=== PATIENT | female | born 1965 | race Caucasian/White ===

== ENCOUNTER 2020-04-02 09:25 | Emergency (ER) | payer OTHER ==
[2020-04-02 09:32] VITALS: BP 145/70; PULSE 72; RESP 18; TEMP 98
[2020-04-02] MEDS ORDERED: hydrOXYzine HCL 25 MG TAB PO STA (09:41)
--- NOTE | 2020-04-02 09:46 | ED ---
Skin/Abscess/FB HPI - General Chief complaint: Skin/Abscess/Foreign Body Stated complaint: hives Time Seen by Provider: 04/02/20 09:32 Source: patient, RN notes reviewed Mode of arrival: ambulatory Limitations: no limitations - History of Present Illness Initial comments: 54-year-old female presents emergency Department chief complaint itchy rash. Patient states that has been on and off for last 1 week. Patient states she also did get a Same time. She states that she's been treating the For some upper respiratory illness. Patient states that she's been taken Benadryl intermittently which helps. She states her small little bite brown noted. No fevers or chills no new medications soaps lotions detergents. - Related Data Previous Rx's Medication Instructions Recorded Triamcinolone 0.1% Cream [Kenalog 1 applicatio TOPICAL BID #30 gram 04/02/20 0.1% Cream] diphenhydrAMINE & Zinc Cream 1 applic TOPICAL TID #1 oz 04/02/20 [Benadryl Cream] hydrOXYzine HCL [Atarax] 25 mg PO TID PRN #15 tab 04/02/20 Allergies Allergy/AdvReac Type Severity Reaction Status Date / Time No Known Allergies Allergy Verified 04/02/20 09:32 Review of Systems ROS Statement: Those systems with pertinent positive or pertinent negative responses have been documented in the HPI. ROS Other: All systems not noted in ROS Statement are negative. Past Medical History Past Medical History: COPD History of Any Multi-Drug Resistant Organisms: None Reported Past Surgical History: Hysterectomy Past Psychological History: Anxiety Smoking Status: Current every day smoker Past Alcohol Use History: None Reported Past Drug Use History: None Reported General Exam Limitations: no limitations General appearance: alert, in no apparent distress Head exam: Present: atraumatic, normocephalic, normal inspection Eye exam: Present: normal appearance, PERRL, EOMI. Absent: scleral icterus, conjunctival injection, periorbital swelling ENT exam: Present: normal exam, normal oropharynx, mucous membranes moist Neck exam: Present: normal inspection, full ROM. Absent: tenderness, meningismus, lymphadenopathy Respiratory exam: Present: normal lung sounds bilaterally. Absent: respiratory distress, wheezes, rales, rhonchi, stridor Cardiovascular Exam: Present: regular rate, normal rhythm, normal heart sounds. Absent: systolic murmur, diastolic murmur, rubs, gallop, clicks Skin exam: Present: warm, dry, intact, normal color, rash (Small raised papules with excoriations noted and mildly on the extremities, torso region) Course Vital Signs 04/02/20 09:28 Temperature 98 F Pulse Rate 72 Respiratory 18 Rate Blood Pressure 145/70 O2 Sat by Pulse 98 Oximetry Medical Decision Making - Medical Decision Making 54-year-old female presented for rash. Patient has some sort of bites we discussed possibility of fleas that she has a new kitten that was rescued. Patient will be given Atarax, topical steroid cream for itching advised to follow-up with PCP and return for any worsening symptoms. Disposition Clinical Impression: Insect bites, Pruritic rash Disposition: HOME SELF-CARE Condition: Stable Instructions (If sedation given, give patient instructions): Acute Rash (ED) Additional Instructions: Please return to the Emergency Department if symptoms worsen or any other concerns. Prescriptions: hydrOXYzine HCL [Atarax] 25 mg PO TID PRN #15 tab PRN Reason: Itching diphenhydrAMINE & Zinc Cream [Benadryl Cream] 1 applic TOPICAL TID #1 oz Triamcinolone 0.1% Cream [Kenalog 0.1% Cream] 1 applicatio TOPICAL BID #30 gram Is patient prescribed a controlled substance at d/c from ED?: No Referrals: None,Stated [Primary Care Provider] - 1-2 days Time of Disposition: 09:46
== END 2020-04-02 09:56 | disposition home or self-care (01) ==
LOC: EC 09:25
DX: L29.9 Pruritus, unspecified (principal); F17.200 Nicotine dependence, unspecified, uncomplicated; W57.XXXA Bitten or stung by nonvenomous insect and other nonvenomous arthropods, initial encounter
CPT/HCPCS: 99282

== ENCOUNTER → 2020-07-10 | Outpatient (CLI) | payer OTHER ==
--- NOTE | 2020-07-11 00:38 | MR ---
EXAMINATION TYPE: MR hip RT wo con DATE OF EXAM: 07/10/2020 COMPARISON: None HISTORY: Right hip pain, clicking, and locking. Multiplanar multiecho imaging of the pelvis and right hip was performed without contrast. Pelvic ring appears intact. The proximal femurs and hip joints appear intact. There is no evidence of hip dysplasia. Hip joint spaces are fairly symmetric. There is no sign of avascular necrosis. There is no evidence of right hip joint effusion. I see no evidence of a pelvic mass. Bladder distends smoothly. The sacroiliac joints have normal sign al pattern. IMPRESSION: Negative MR scan of the right hip.
== END | disposition home or self-care (01) ==
LOC: RADMRIMAIN 13:06
PROVIDERS: ATTEND Physician Assistant
DX: M25.551 Pain in right hip (principal); M25.552 Pain in left hip; M70.61 Trochanteric bursitis, right hip; M54.5 Low back pain

== ENCOUNTER 2020-12-26 23:23 | Emergency (ER) | payer OTHER ==
[2020-12-26 23:28] VITALS: RESP 18
[2020-12-27 00:08] LABS: Basophils % (A) 0 %; Eosinophils # (A) 0.1 k/uL (0-0.7); Eosinophils % (A) 1 %; HCT 40.6 % (34.0-46.0); HGB 14.6 gm/dL (11.4-16.0); Lymphocytes # (A) 1.8 k/uL (1.0-4.8); Lymphocytes % (A) 28 %; MCH 32.7 pg (25.0-35.0); MCHC 36.1 g/dL (31.0-37.0); MCV 90.7 fL (80.0-100.0); Monocytes # (A) 0.5 k/uL (0-1.0); Monocytes % (A) 8 %; Neutrophils # (A) 3.9 k/uL (1.3-7.7); Neutrophils % (A) 61 %; Platelet Count 234 k/uL (150-450); RBC 4.48 m/uL (3.80-5.40); RDW 12.2 % (11.5-15.5); WBC 6.5 k/uL (3.8-10.6)
[2020-12-27 00:20] LABS: ALT 13 U/L (4-34); AST 19 U/L (14-36); African American GFR (CKD) >90 (>60 ml/min/1.73 sqM); Alkaline Phosphatase 50 U/L (38-126); Amylase 72 U/L (30-110); Anion Gap 7 mmol/L; Blood Urea Nitrogen 13 mg/dL (7-17); Calcium 9.7 mg/dL (8.4-10.2); Carbon Dioxide 22 mmol/L (22-30); Chloride 109 mmol/L (98-107); Glucose 104 mg/dL (74-99); Lipase 378 U/L (23-300); Magnesium 1.8 mg/dL (1.6-2.3); Non-African American GFR(CKD) >90 (>60 ml/min/1.73 sqM); Potassium 3.7 mmol/L (3.5-5.1); Sodium 138 mmol/L (137-145); Total Bilirubin 0.4 mg/dL (0.2-1.3); Total Protein 6.2 g/dL (6.3-8.2)
[2020-12-27 00:40] LABS: D-Dimer 0.24 mg/L FEU (<0.60); INR 0.9 (<1.2); Partial Thromboplastin Time 23.4 sec (22.0-30.0); Prothrombin Time 10.1 sec (9.0-12.0)
--- NOTE | 2020-12-27 00:47 | XR ---
EXAMINATION TYPE: XR chest 2V DATE OF EXAM: 12/27/2020 COMPARISON: 03/05/2012 HISTORY: Chest pain TECHNIQUE: 2 views FINDINGS: Heart and mediastinum are normal. Lungs are clear. Diaphragm is normal. Bony thorax is inta ct. There are chest leads. IMPRESSION: Normal chest. No change.
--- NOTE | 2020-12-27 01:16 | ED ---
Chest Pain HPI - General Chief Complaint: Chest Pain Stated Complaint: Chest Pain Time Seen by Provider: 12/26/20 23:42 Source: patient Mode of arrival: ambulatory Limitations: no limitations - History of Present Illness Initial Comments: 's patient is a 55-year-old woman who presents with complaint of chest pain that is been going on for 2 days. She states that it seems to be worse with stress. No relieving factors. MD Complaint: chest pain Onset/Timin -: days(s) Onset: during rest Pain Location: left chest Pain Radiation: none Severity: moderate Quality: aching, other (Pressure) Consistency: constant Improves With: nothing Worsens With: other (Stress) Other Symptoms: cough Treatments Prior to Arrival: none - Related Data Previous Rx's Medication Instructions Recorded Triamcinolone 0.1% Cream [Kenalog 1 applicatio TOPICAL BID #30 gram 04/02/20 0.1% Cream] diphenhydrAMINE & Zinc Cream 1 applic TOPICAL TID #1 oz 04/02/20 [Benadryl Cream] hydrOXYzine HCL [Atarax] 25 mg PO TID PRN #15 tab 04/02/20 Allergies Allergy/AdvReac Type Severity Reaction Status Date / Time No Known Allergies Allergy Verified 12/26/20 23:25 Review of Systems ROS Statement: Those systems with pertinent positive or pertinent negative responses have been documented in the HPI. ROS Other: All systems not noted in ROS Statement are negative. Constitutional: Denies: fever, chills Respiratory: Reports: cough (Smoker's cough, chronic). Denies: dyspnea, wheezes, hemoptysis Cardiovascular: Reports: chest pain. Denies: palpitations, orthopnea, edema, syncope Gastrointestinal: Denies: abdominal pain, nausea, vomiting, diarrhea Genitourinary: Denies: dysuria, hematuria Musculoskeletal: Denies: back pain Skin: Denies: rash Neurological: Denies: headache, weakness, numbness EKG Findings - EKG Comments: EKG Findings:: Low voltage QRS complex - EKG Results: EKG: interpreted by LISSETTE, sinus rhythm (Rate 67 bpm), normal axis, normal ST/T Past Medical History Past Medical History: COPD History of Any Multi-Drug Resistant Organisms: None Reported Past Surgical History: Hysterectomy Past Psychological History: Anxiety Smoking Status: Current every day smoker Past Alcohol Use History: None Reported Past Drug Use History: None Reported General Exam Limitations: no limitations Course Vital Signs 12/26/20 12/27/20 12/27/20 23:25 00:40 01:30 Temperature 97.9 F 98.0 F Pulse Rate 72 75 78 Respiratory 18 18 18 Rate Blood Pressure 145/77 149/89 161/87 O2 Sat by Pulse 98 99 98 Oximetry 12/27/20 02:15 Temperature 98.1 F Pulse Rate 68 Respiratory 18 Rate Blood Pressure 174/92 O2 Sat by Pulse 98 Oximetry Chest Pain MDM - MDM Patient's 55-year-old woman with chest pain. Given the patient's smoking history, I did recommend staying to have monitor monitoring, serial cardiac enzymes and cardiology consultation. Patient is declining to have this. She will have close follow-up as outpatient for stress test. We discussed the warning signs for cardiac and she will return immediately should any of those develop. Disposition Clinical Impression: Chest pain Disposition: HOME SELF-CARE Condition: Good Instructions (If sedation given, give patient instructions): Chest Pain (ED) Additional Instructions: As we discussed, follow-up for the stress test. If there is any difficulty in arranging this in the very near future deftly return to the hospitalist can be done in the hospital. Also follow-up to have the amylase rechecked. Return here if there is any difficulty in having this done Is patient prescribed a controlled substance at d/c from ED?: No Referrals: Joe Michael MD [Primary Care Provider] - 1-2 days Ronny Bower MD [STAFF PHYSICIAN] - 1-2 days
[2020-12-27 02:33] VITALS: BP 174/92; PULSE 68; TEMP 98.1
== END 2020-12-27 02:15 | disposition home or self-care (01) ==
LOC: EC 23:23
DX: R07.89 Other chest pain (principal); J44.9 Chronic obstructive pulmonary disease, unspecified; F41.9 Anxiety disorder, unspecified; F17.200 Nicotine dependence, unspecified, uncomplicated; Z79.899 Other long term (current) drug therapy
CPT/HCPCS: 36415; 71046; 80053; 82150; 83690; 83735; 83880; 84484; 85025; 85379; 85610; 85730; 93005; 99285

== ENCOUNTER → 2021-04-29 | Outpatient (CLI) | payer OTHER ==
--- NOTE | 2021-04-29 18:52 | XR ---
EXAMINATION TYPE: XR chest 2V DATE OF EXAM: 04/29/2021 COMPARISON: Pain status post injury. HISTORY: 12/27/2020 TECHNIQUE: Frontal and lateral views of the chest are obtained. FINDINGS: There is no focal air space opacity, pleural effusion, or pneumothorax seen. The cardiac silhouette size is within normal limits. The osseous structures are intact. IMPRESSION: No acute cardiopulmonary process.
--- NOTE | 2021-04-29 18:53 | XR ---
RESULT: HISTORY: S20.20 TECHNIQUE: 4 views of the right ribs were obtained. COMPARISON: None. FINDINGS: There is no acute displaced rib fracture. The visualized right lung is clear. IMPRESSION: No displaced rib fracture.
== END | disposition home or self-care (01) ==
LOC: RADXRMAIN 18:12
PROVIDERS: ATTEND Emergency Medicine
DX: R07.9 Chest pain, unspecified (principal); R07.81 Pleurodynia; S29.9XXA Unspecified injury of thorax, initial encounter
CPT/HCPCS: 71046

== ENCOUNTER → 2022-07-07 | Outpatient (CLI) | payer OTHER ==
--- NOTE | 2022-07-08 19:02 | MM ---
Reason for Exam: Screening (asymptomatic). Last mammogram was performed 6 year(s) and 10 month(s) ago. Patient History: Menarche at age 16. First Full-Term at age 18. Hysterectomy at age 37. Postmenopausal. Maternal grandmother had breast cancer. Maternal aunt had breast cancer. Maternal aunt had breast cancer. Mother had breast cancer. Risk Values: Maryellen 5 year model risk: 2.2%. NCI Lifetime model risk: 13.0%. Prior Study Comparison: 05/19/2002 Bilateral Screening Mammogram, [facility]. 09/05/2015 Bilateral Screening Mammogram, [facility]. Tissue Density: The breast tissue is heterogeneously dense. This may lower the sensitivity of mammography. Findings: Analyzed By CAD. Asymmetric density lateral right CC view at middle depth appears more defined. No clear correlate on the MLO view. Further evaluation is recommended. Unchanged low axillary tail lymph nodes right breast. Overall Assessment: Incomplete: need additional imaging evaluation, BI-RAD 0 Management: Special View Mammogram of the right breast. Diagnostic Breast Ultrasound of the right breast. Additional views to include spot 3-D CC, 3-D CC rolled medial, spot 3-D MLO, and 3-D ML views. Targeted right breast ultrasound depending on localization on further workup images. [facility] will attempt to contact patient to return for supplemental views and ultrasound if indicated. Electronically signed and approved by: Klaus Sanchez M.D. Radiologist
== END | disposition home or self-care (01) ==
LOC: RADMAMWWP 16:47
PROVIDERS: ATTEND Family Medicine
DX: Z12.31 Encounter for screening mammogram for malignant neoplasm of breast (principal); Z80.3 Family history of malignant neoplasm of breast; Z78.0 Asymptomatic menopausal state
CPT/HCPCS: 77067

== ENCOUNTER → 2022-07-15 | Outpatient (CLI) | payer OTHER ==
--- NOTE | 2022-07-15 14:46 | MM ---
Reason for Exam: Additional evaluation requested from abnormal screening. Last screening mammogram was performed less than 1 month ago. Patient History: Menarche at age 16. First Full-Term at age 18. Hysterectomy at age 37. Postmenopausal. Maternal grandmother had breast cancer, age 67. Maternal aunt had breast cancer. Maternal aunt had breast cancer. Mother had breast cancer, age 75. Risk Values: Maryellen 5 year model risk: 2.2%. NCI Lifetime model risk: 13.0%. Prior Study Comparison: 05/19/2002 Bilateral Screening Mammogram, [facility]. 09/05/2015 Bilateral Screening Mammogram, [facility]. 07/07/2022 Bilateral MG screening mammo w CAD, [facility]. Tissue Density: Right: The breast tissue is heterogeneously dense. This may lower the sensitivity of mammography. Findings: Analyzed By CAD. The questioned lateral asymmetric density disperses on compression view. Findings compatible with superimposition shadow. Overall Assessment: Negative, BI-RAD 1 Management: Screening Mammogram of both breasts in 1 year. 1. Patient should continue monthly self breast exams. 2. A clinical breast exam by your physician is recommended on an annual basis. 3. This exam should not preclude additional follow-up of suspicious palpable abnormalities. Results were given to the patient verbally at the time of exam. Electronically signed and approved by: Klaus Sanchez M.D. Radiologist
== END | disposition home or self-care (01) ==
LOC: RADMAMWWP 14:21
PROVIDERS: ATTEND Family Medicine
DX: R92.8 Other abnormal and inconclusive findings on diagnostic imaging of breast (principal); Z78.0 Asymptomatic menopausal state; Z80.3 Family history of malignant neoplasm of breast
CPT/HCPCS: 77065

== ENCOUNTER 2023-12-08 11:43 | Emergency (ER) | payer OTHER ==
[2023-12-08 11:48] VITALS: RESP 18
--- NOTE | 2023-12-08 12:26 | XR ---
EXAMINATION TYPE: XR ribs LT w pa chest xray DATE OF EXAM: 12/08/2023 COMPARISON: NONE HISTORY: Pain TECHNIQUE: Single view of the chest 3 views of the ribs are submitted. FINDINGS: The lungs are clear. No Evidence for pneumothorax. No evidence for focal contusion. Medi astinal structures are midline. Evaluation of the ribs fails to demonstrate evidence for displaced r ib fracture or secondary sign of rib fracture. IMPRESSION: Negative study
--- NOTE | 2023-12-08 12:37 | ED ---
Fall HPI - General Chief Complaint: Fall Stated Complaint: fall Time Seen by Provider: 12/08/23 11:48 Source: patient, RN notes reviewed Mode of arrival: ambulatory Limitations: no limitations - History of Present Illness Initial Comments: 58-year-old female presents emergency department with chief complaint of rib injury. She states that she fell on some stairs she actually slid down them into a wooden post states that she hit her left side of her lower ribs she complains of some discomfort but Motrin takes the pain away. She has felt short of breath no head injury or loss conscious no back pain no abdominal pain with bruising noted she states her son was concerned and she felt that she would come here for peace of mind. - Related Data Home Medications Medication Instructions Recorded Confirmed No Known Home Medications 12/08/23 12/08/23 Allergies Allergy/AdvReac Type Severity Reaction Status Date / Time No Known Allergies Allergy Verified 12/26/20 23:25 Review of Systems ROS Statement: Those systems with pertinent positive or pertinent negative responses have been documented in the HPI. ROS Other: All systems not noted in ROS Statement are negative. Past Medical History Past Medical History: COPD History of Any Multi-Drug Resistant Organisms: None Reported Past Surgical History: Hysterectomy Past Psychological History: Anxiety Smoking Status: Current some day smoker Past Alcohol Use History: None Reported Past Drug Use History: None Reported General Exam Limitations: no limitations General appearance: alert, in no apparent distress Head exam: Present: atraumatic, normocephalic, normal inspection Respiratory exam: Present: normal lung sounds bilaterally, chest wall tenderness (Mild left lower rib tenderness). Absent: respiratory distress, wheezes, rales, rhonchi, stridor Cardiovascular Exam: Present: regular rate, normal rhythm, normal heart sounds. Absent: systolic murmur, diastolic murmur, rubs, gallop, clicks GI/Abdominal exam: Present: soft, normal bowel sounds. Absent: distended, tenderness, guarding, rebound, rigid Back exam: Present: full ROM. Absent: tenderness, paraspinal tenderness, vertebral tenderness Course Vital Signs 12/08/23 11:45 Temperature 98.3 F Pulse Rate 68 Respiratory 18 Rate Blood Pressure 157/84 O2 Sat by Pulse 97 Oximetry Medical Decision Making - Medical Decision Making Was pt. sent in by a medical professional or institution (, PA, BAR HELPER, urgent care, hospital, or [place] health care facility...) When possible be specific @ -No Did you speak to anyone other than the patient for history (EMS, parent, family, police, friend...)? What history was obtained from this source @ -No Did you review nursing and triage notes (agree or disagree)? Why? @ -I reviewed and agree with nursing and triage notes Were old charts reviewed (outside hosp., previous admission, EMS record, old EKG, old radiological studies, urgent care reports/EKG's, [place] health care facility records)? Report findings @ -No old charts were reviewed Differential Diagnosis (chest pain, altered mental status, abdominal pain women, abdominal pain men, vaginal bleeding, weakness, fever, dyspnea, syncope, headache, dizziness, GI bleed, back pain, seizure, CVA, palpatations, mental health, musculoskeletal)? @ -Rib fracture, rib contusion, pneumothorax EKG interpreted by me (3pts min.). @ -None X-rays interpreted by me (1pt min.). @ -[X-ray left rib series, PA chest no acute fracture or pneumothorax CT interpreted by me (1pt min.). @ -None done U/S interpreted by me (1pt. min.). @ -None done What testing was considered but not performed or refused? (CT, X-rays, U/S, labs)? Why? @ -None What meds were considered but not given or refused? Why? @ -None Did you discuss the management of the patient with other professionals (professionals i.e. , PA, BAR HELPER, lab, RT, psych nurse, manager social responsibility, manufacturing machine operator, teacher, chief green officer, medical case manager)? Give summary @ -No Was smoking cessation discussed for >3mins.? @ -No Was critical care preformed (if so, how long)? @ -No Were there social determinants of health that impacted care today? How? (Homelessness, low income, unemployed, alcoholism, drug addiction, transportation, low edu. Level, literacy, decrease access to med. care, usp, rehab)? @ -No Was there de-escalation of care discussed even if they declined (Discuss DNR or withdrawal of care, Hospice)? DNR status @ -No What co-morbidities impacted this encounter? (DM, HTN, Smoking, COPD, CAD, Cancer, CVA, ARF, Chemo, Hep., AIDS, mental health diagnosis, sleep apnea, mor bid obesity)? @ -None Was patient admitted / discharged? Hospital course, mention meds given and route, prescriptions, significant lab abnormalities, going to OR and other pertinent info. @ -Hospital course Undiagnosed new problem with uncertain prognosis? @ -No Drug Therapy requiring intensive monitoring for toxicity (Heparin, Nitro, Insulin, Cardizem)? @ -No Were any procedures done? @ -No Diagnosis/symptom? @ -Rib contusion left Acute, or Chronic, or Acute on Chronic? @ -Acute Uncomplicated (without systemic symptoms) or Complicated (systemic symptoms)? @ -Uncomplicated Side effects of treatment? @ -No Exacerbation, Progression, or Severe Exacerbation? @ -No Poses a threat to life or bodily function? How? (Chest pain, [place], [place], pneumonia, PE, COPD, DKA, ARF, appy, cholecystitis, CVA, Diverticulitis, Homicidal, Suicidal, threat to staff... and all critical care pts) @ -No Disposition Clinical Impression: Fall, Contusion of rib on left side Disposition: HOME SELF-CARE Condition: Stable Instructions (If sedation given, give patient instructions): Rib Contusion (ED) Additional Instructions: Please return to the Emergency Department if symptoms worsen or any other concerns. Is patient prescribed a controlled substance at d/c from ED?: No Referrals: Andre Cavanaugh MD [Primary Care Provider] - 1-2 days Time of Disposition: 12:37
[2023-12-08 12:56] VITALS: BP 147/82; PULSE 65; TEMP 98.1
== END 2023-12-08 12:56 | disposition home or self-care (01) ==
LOC: EC 11:43 → SUPCPDRO 11:43 → EC 12:56
DX: S20.212A Contusion of left front wall of thorax, initial encounter (principal); F17.200 Nicotine dependence, unspecified, uncomplicated; W10.9XXA Fall (on) (from) unspecified stairs and steps, initial encounter
CPT/HCPCS: 99283